=== PATIENT | female | born 1950 | race Caucasian/White ===

== ENCOUNTER 2021-09-07 11:26 | Outpatient (CLI) | payer OTHER, MEDICARE | END 2021-09-07 11:27 | disposition home or self-care (01) | LOC: CSHRAD 11:26 | PROVIDERS: ATTEND Internal Medicine Gastroenterology | DX: K59.09 Other constipation (principal); K43.2 Incisional hernia without obstruction or gangrene; K64.9 Unspecified hemorrhoids; K60.3 Anal fistula; Z12.11 Encounter for screening for malignant neoplasm of colon; K80.20 Calculus of gallbladder without cholecystitis without obstruction | CPT/HCPCS: 74019 ==